=== PATIENT | male | born 1960 | race Caucasian/White ===

== ENCOUNTER 2016-11-23 18:41 | Observation (INO) | payer OTHER ==
[2016-11-23] MEDS ORDERED: NS 0.9% 1000 ML* 1,000 ML IV SCH ×2 (19:45→21:30)
[2016-11-23 19:58] LABS: Hematocrit 46 % (42-52); Hemoglobin 15.8 g/dl (14.0-18.0); Mean Corpuscular HGB Conc 35 g/dl (31-36); Mean Corpuscular Hemoglobin 31 pg (27-31); Mean Corpuscular Volume 91 fL (80-94); Mean Platelet Volume 7 um3 (7.4-10.4); Red Blood Count 5.04 10^6/ul (4.0-5.4); Red Cell Distribution Width 13 % (10.5-15); White Blood Count 9.1 10^3/ul (3.5-10.8)
[2016-11-23 20:14] LABS: Albumin 4.3 g/dL (3.2-5.2); BUN/Creatinine Ratio 12.7 (8-20); C Reactive Protein 2.68 mg/L (< 5.00); Calcium 9.8 mg/dL (8.6-10.3); EGFR Non-African American 101.1 (>60); Magnesium 1.8 mg/dL (1.9-2.7); Potassium 3.4 mmol/L (3.5-5.0); Total Bilirubin 0.5 mg/dL (0.2-1.0); Total Protein 7.3 g/dL (6.4-8.9)
[2016-11-23 20:17] LABS: Troponin I 0.01 ng/mL (<0.04)
--- NOTE | 2016-11-23 20:38 | RAD ---
INDICATION: Chest pain COMPARISON: None TECHNIQUE: An AP portable view obtained at 2000 hours is submitted. FINDINGS: Bones/Soft Tissues: There are no acute bony findings. Cardiomediastinal: The cardiomediastinal silhouette is normal. Lungs: There are no infiltrates. Pleura: There are no pleural effusions. Other: None IMPRESSION: NO ACTIVE DISEASE
[2016-11-23 20:43] LABS: TSH (Thyroid Stimulating Horm) 2.07 mcIU/mL (0.34-5.60)
[2016-11-23] MEDS ORDERED: Aspirin Low Dose CHEW TAB* 81 MG PO ONE (21:09)
[2016-11-23] MEDS ORDERED: Magnesium Sulfate 2 GM IV* 2 GM/50 ML BAG IVPB ONE (21:14)
[2016-11-23] MEDS ORDERED: Acetaminophen TAB* 325 MG PO PRN (21:15)
[2016-11-23] MEDS ORDERED: Ondansetron INJ* 2 MG/ML VIAL IV PRN (21:16)
[2016-11-23] MEDS ORDERED: CMCS: Melatonin (NF) 3 MG TAB PO PRN (21:16)
[2016-11-23] MEDS ORDERED: Albuterol 2.5 MG/3 ML NEB.SOL* (0.083%) INH PRN (21:16)
[2016-11-23] MEDS ORDERED: Nicotine Inhaler* 10 MG AMP INH PRN (21:16)
[2016-11-23] MEDS ORDERED: Morphine INJ* 2 MG/ML 1 ML SYRINGE IV PRN (21:16)
[2016-11-23] MEDS: Metoprolol Tartrate TAB* 25 MG PO SCH (23:10)
--- NOTE | 2016-11-24 01:20 | ED ---
arlet Guerrero Timothy, scribed for Jordan De Paz MD on 11/23/16 at 2056 . Dizziness - HPI Summary HPI Summary: Markel Gil is a 55 yo male presenting to [facility] with 7/10 sharp mid sternal CP at 1430 today, lasting a few seconds, and at 1530 diffuse tingling sensation with a feeling of lightheadedness and weakness that is in the process of resolving. Pt states he is experiencing chills and shakes as well. He states he experienced his Sx while walking to his car from a gas station. He denies SOB, nausea, radiation of pain, or diaphoresis. He notes he has been busy today and did not eat much this morning. His MHx includes HTN. - History Of Current Complaint Chief Complaint: EDDizziness Stated Complaint: LIGHT HEADED ,DIZZY Time Seen by Provider: 11/23/16 20:50 Hx Obtained From: Patient Onset/Duration: Still Present Timing: Constant Severity Initially: Moderate Severity Currently: Moderate Associated Signs And Symptoms: Positive: Chest Pain, Chills, Other: - shakes, weakness, lightheadedness - Allergies/Home Medications Allergies/Adverse Reactions: Allergies Allergy/AdvReac Type Severity Reaction Status Date / Time No Known Allergies Allergy Verified 11/23/16 18:44 PMH/Surg Hx/FS Hx/Imm Hx Cardiovascular History: Reports: Hx Hypertension Infectious Disease History: No Infectious Disease History: Denies: Traveled Outside the [place] in Last 30 Days - Family History Known Family History: Positive: Cardiac Disease - CABGx3 in father and brother - Social History Alcohol Use: Occasionally Substance Use Type: Reports: None Smoking Status (MU): Heavy Every Day Tobacco Smoker Review of Systems Positive: Chills, Other - shakes Eyes: Negative ENT: Negative Positive: Chest Pain Respiratory: Negative Gastrointestinal: Negative Genitourinary: Negative Musculoskeletal: Negative Skin: Negative Neurological: Other - lightheadedness Positive: Weakness, Paresthesia Psychological: Normal All Other Systems Reviewed And Are Negative: Yes Physical Exam Triage Information Reviewed: Yes Vital Signs On Initial Exam: Initial Vitals Temp Pulse Resp Pulse Ox 99.0 F 98 20 100 11/23/16 18:44 11/23/16 18:44 11/23/16 18:44 11/23/16 18:44 Vital Signs Reviewed: Yes Appearance: Positive: Well-Appearing, No Pain Distress, Well-Nourished Skin: Positive: Warm, Skin Color Reflects Adequate Perfusion, Dry Head/Face: Positive: Normal Head/Face Inspection Eyes: Positive: EOMI, RODRICK ENT: Positive: Normal ENT inspection Neck: Positive: Supple, Nontender Respiratory/Lung Sounds: Positive: Clear to Auscultation, Breath Sounds Present Cardiovascular: Positive: RRR Abdomen Description: Positive: Nontender, Soft Bowel Sounds: Positive: Present Musculoskeletal: Positive: Normal, Strength/ROM Intact Neurological: Positive: Sensory/Motor Intact, Alert, Oriented to Person Place, Time Psychiatric: Positive: Affect/Mood Appropriate - [place] Coma Scale Coma Scale Total: 15 Diagnostics - Vital Signs Vital Signs Temp Pulse Resp BP Pulse Ox 11/23/16 18:47 99 F 94 20 155/85 100 11/23/16 18:44 99.0 F 98 20 100 - Laboratory Lab Results: Lab Results 11/23/16 11/23/16 11/23/16 Range/Units 19:50 19:50 19:50 WBC 9.1 (3.5-10.8) 10^3/ul RBC 5.04 (4.0-5.4) 10^6/ul Hgb 15.8 (14.0-18.0) g/dl Hct 46 (42-52) % MCV 91 (80-94) fL MCH 31 (27-31) pg MCHC 35 (31-36) g/dl RDW 13 (10.5-15) % Plt Count 231 (150-450) 10^3/ul MPV 7 L (7.4-10.4) um3 Neut % (Auto) 68.5 (38-83) % Lymph % (Auto) 17.7 L (25-47) % [place] % (Auto) 9.4 H (1-9) % Eos % (Auto) 3.4 (0-6) % Baso % (Auto) 1.0 (0-2) % Absolute Neuts (auto) 6.3 (1.5-7.7) 10^3/ul Absolute Lymphs (auto) 1.6 (1.0-4.8) 10^3/ul Absolute Monos (auto) 0.9 H (0-0.8) 10^3/ul Absolute Eos (auto) 0.3 (0-0.6) 10^3/ul Absolute Basos (auto) 0.1 (0-0.2) 10^3/ul Absolute Nucleated RBC 0 10^3/ul Nucleated RBC % 0 INR (Anticoag Therapy) 0.93 (0.89-1.11) APTT 31.5 (26.0-36.3) seconds Sodium 134 (133-145) mmol/L Potassium 3.4 L (3.5-5.0) mmol/L Chloride 101 (101-111) mmol/L Carbon Dioxide 23 (22-32) mmol/L Anion Gap 10 (2-11) mmol/L BUN 10 (6-24) mg/dL Creatinine 0.79 (0.67-1.17) mg/dL Est GFR ( Amer) 130.0 (>60) Est GFR (Non-Af Amer) 101.1 (>60) BUN/Creatinine Ratio 12.7 (8-20) Glucose 91 (70-100) mg/dL Lactic Acid (0.5-2.0) mmol/L Calcium 9.8 (8.6-10.3) mg/dL Magnesium 1.8 L (1.9-2.7) mg/dL Total Bilirubin 0.50 (0.2-1.0) mg/dL AST 21 (13-39) U/L ALT 39 (7-52) U/L Alkaline Phosphatase 53 (34-104) U/L Total Creatine Kinase 72 (10-223) U/L CK-MB (CK-2) 1.6 (0.6-6.3) ng/mL Troponin I 0.01 (<0.04) ng/mL C-Reactive Protein 2.68 (< 5.00) mg/L B-Natriuretic Peptide ( - 100) pg/mL Total Protein 7.3 (6.4-8.9) g/dL Albumin 4.3 (3.2-5.2) g/dL Globulin 3.0 (2-4) g/dL Albumin/Globulin Ratio 1.4 (1-3) Lipase 18 (11.0-82.0) U/L TSH 2.07 (0.34-5.60) mcIU/mL 11/23/16 11/23/16 Range/Units 19:50 19:50 WBC (3.5-10.8) 10^3/ul RBC (4.0-5.4) 10^6/ul Hgb (14.0-18.0) g/dl Hct (42-52) % MCV (80-94) fL MCH (27-31) pg MCHC (31-36) g/dl RDW (10.5-15) % Plt Count (150-450) 10^3/ul MPV (7.4-10.4) um3 Neut % (Auto) (38-83) % Lymph % (Auto) (25-47) % [place] % (Auto) (1-9) % Eos % (Auto) (0-6) % Baso % (Auto) (0-2) % Absolute Neuts (auto) (1.5-7.7) 10^3/ul Absolute Lymphs (auto) (1.0-4.8) 10^3/ul Absolute Monos (auto) (0-0.8) 10^3/ul Absolute Eos (auto) (0-0.6) 10^3/ul Absolute Basos (auto) (0-0.2) 10^3/ul Absolute Nucleated RBC 10^3/ul Nucleated RBC % INR (Anticoag Therapy) (0.89-1.11) APTT (26.0-36.3) seconds Sodium (133-145) mmol/L Potassium (3.5-5.0) mmol/L Chloride (101-111) mmol/L Carbon Dioxide (22-32) mmol/L Anion Gap (2-11) mmol/L BUN (6-24) mg/dL Creatinine (0.67-1.17) mg/dL Est GFR ( Amer) (>60) Est GFR (Non-Af Amer) (>60) BUN/Creatinine Ratio (8-20) Glucose (70-100) mg/dL Lactic Acid 1.7 (0.5-2.0) mmol/L Calcium (8.6-10.3) mg/dL Magnesium (1.9-2.7) mg/dL Total Bilirubin (0.2-1.0) mg/dL AST (13-39) U/L ALT (7-52) U/L Alkaline Phosphatase (34-104) U/L Total Creatine Kinase (10-223) U/L CK-MB (CK-2) (0.6-6.3) ng/mL Troponin I (<0.04) ng/mL C-Reactive Protein (< 5.00) mg/L B-Natriuretic Peptide 41 ( - 100) pg/mL Total Protein (6.4-8.9) g/dL Albumin (3.2-5.2) g/dL Globulin (2-4) g/dL Albumin/Globulin Ratio (1-3) Lipase (11.0-82.0) U/L TSH (0.34-5.60) mcIU/mL Result Diagrams: 11/23/16 19:50 11/23/16 19:50 Lab Statement: Any lab studies that have been ordered have been reviewed, and results considered in the medical decision making process. - Radiology CXR Xray Interpretation: No Acute Changes - IMPRESSION: NO ACTIVE DISEASE Radiology Interpretation Completed By: Radiologist - EKG 1848 Cardiac Rate: NL - BPM EKG Interpretation: NSR @ 87 BPM, nml ST, no ectopy Dizzy Course/Dx - Course Assessment/Plan: Markel Gil is a 55 yo male presenting to [facility] with 2/10 CP lasting a few minutes at 1430, followed by dizziness at 1530 that has not resolved, also c/o chills and shakes. His medication list was reviewed this visit. His CXR suggests no active disease. Reviewed lab, imaging, and EKG results with Pt, as well as possible admission for observation and stress test. Pt is agreeable to be admitted to [facility]. After clinical examination and review of his lab and imaging studies, as well as discussion with Dr. Bruno, he will be admitted to [facility] for further observation and stress test. NO CRITICAL CARE TIME. ADMIT HOSPITALIST STABLE. - Diagnoses Provider Diagnoses: Chest pain, Lightheadedness - Provider Notifications Discussed Care Of Patient With: Sonido Bruno - Accepts Pt for admission Time Discussed With Above Provider: 21:14 Discharge - Discharge Plan Condition: Stable Disposition: ADMITTED TO [facility] documentation as recorded by the arlet gordillo Timothy accurately reflects the service I personally performed and the decisions made by me, Jordan De Paz MD.
--- NOTE | 2016-11-24 03:38 | HP ---
H&P (Free Text) History and Physical: PCP: none Date/Time of Evaluation: 11/23/2016 2100 CC: chest pain, light-headedness HPI: Mr Gil is a 55YO male HX PMedHx HTN OA Allergies No Known Allergies Allergy (Verified 11/23/16 18:44) PSurgHx R knee arthroscopy x2 R shoulder surgery x2 SocHx: 1PPD cigarettes, mild alcohol, denies recreational drugs; full code status FamHx: Father: CAD age 50, CABG; Brother: CAD age 40, CABG ROS: as above, otherwise reviewed and all were negative Constitutional: NAD, normally developed, obese white male vitals: Vital Signs Temp 36.7 C 11/24/16 00:13 Pulse 73 11/24/16 00:13 Resp 16 11/24/16 00:13 BP 117/71 11/24/16 00:13 Pulse Ox 95 11/24/16 00:13 Intake & Output 11/23/16 11/23/16 11/24/16 11:59 23:59 11:59 Intake Total 750 Balance 750 Weight 85.593 kg Intake: IV Fluids 750 HEENM: atraumatic; sclera/conjunctiva: non-icteric/clear; hearing: clinically intact; oropharynx: clear, mucosa moist Neck: soft tissue: non-tender; thyroid: normal Pulmonary: clear to auscultation bilaterally, good aeration, no accessory muscle use CV: RR/RR, normal S1S2, no carotid bruit, no jugular venous distention, 2+ B DP/ PT, no edema Abdominal: soft, non-distended, non-tender, no rebound/guarding/rigidity, normoactive bowel sounds, no hepatosplenomegaly or masses, no costovertebral angle tenderness Musculoskeletal: general: grossly intact; gait: stable Integumental: normal appearance and texture of exposed skin Psychiatric orientation: AA&O to PPS affect: calm mood: cooperative eye contact: good to fair content: reliable responses: timely insight: good to fair Testing: Lab Results 11/23/16 11/23/16 11/23/16 Range/Units 19:50 19:50 19:50 WBC 9.1 (3.5-10.8) 10^3/ul RBC 5.04 (4.0-5.4) 10^6/ul Hgb 15.8 (14.0-18.0) g/dl Hct 46 (42-52) % MCV 91 (80-94) fL MCH 31 (27-31) pg MCHC 35 (31-36) g/dl RDW 13 (10.5-15) % Plt Count 231 (150-450) 10^3/ul MPV 7 L (7.4-10.4) um3 Neut % (Auto) 68.5 (38-83) % Lymph % (Auto) 17.7 L (25-47) % [place] % (Auto) 9.4 H (1-9) % Eos % (Auto) 3.4 (0-6) % Baso % (Auto) 1.0 (0-2) % Absolute Neuts (auto) 6.3 (1.5-7.7) 10^3/ul Absolute Lymphs (auto) 1.6 (1.0-4.8) 10^3/ul Absolute Monos (auto) 0.9 H (0-0.8) 10^3/ul Absolute Eos (auto) 0.3 (0-0.6) 10^3/ul Absolute Basos (auto) 0.1 (0-0.2) 10^3/ul Absolute Nucleated RBC 0 10^3/ul Nucleated RBC % 0 INR (Anticoag Therapy) 0.93 (0.89-1.11) APTT 31.5 (26.0-36.3) seconds D-Dimer, Quantitative < 200 (Less Than 230) ng/mL Sodium 134 (133-145) mmol/L Potassium 3.4 L (3.5-5.0) mmol/L Chloride 101 (101-111) mmol/L Carbon Dioxide 23 (22-32) mmol/L Anion Gap 10 (2-11) mmol/L BUN 10 (6-24) mg/dL Creatinine 0.79 (0.67-1.17) mg/dL Est GFR ( Amer) 130.0 (>60) Est GFR (Non-Af Amer) 101.1 (>60) BUN/Creatinine Ratio 12.7 (8-20) Glucose 91 (70-100) mg/dL Lactic Acid (0.5-2.0) mmol/L Calcium 9.8 (8.6-10.3) mg/dL Magnesium 1.8 L (1.9-2.7) mg/dL Total Bilirubin 0.50 (0.2-1.0) mg/dL AST 21 (13-39) U/L ALT 39 (7-52) U/L Alkaline Phosphatase 53 (34-104) U/L Total Creatine Kinase 72 (10-223) U/L CK-MB (CK-2) 1.6 (0.6-6.3) ng/mL Troponin I 0.01 (<0.04) ng/mL C-Reactive Protein 2.68 (< 5.00) mg/L B-Natriuretic Peptide ( - 100) pg/mL Total Protein 7.3 (6.4-8.9) g/dL Albumin 4.3 (3.2-5.2) g/dL Globulin 3.0 (2-4) g/dL Albumin/Globulin Ratio 1.4 (1-3) Lipase 18 (11.0-82.0) U/L TSH 2.07 (0.34-5.60) mcIU/mL 11/23/16 11/23/16 Range/Units 19:50 19:50 WBC (3.5-10.8) 10^3/ul RBC (4.0-5.4) 10^6/ul Hgb (14.0-18.0) g/dl Hct (42-52) % MCV (80-94) fL MCH (27-31) pg MCHC (31-36) g/dl RDW (10.5-15) % Plt Count (150-450) 10^3/ul MPV (7.4-10.4) um3 Neut % (Auto) (38-83) % Lymph % (Auto) (25-47) % [place] % (Auto) (1-9) % Eos % (Auto) (0-6) % Baso % (Auto) (0-2) % Absolute Neuts (auto) (1.5-7.7) 10^3/ul Absolute Lymphs (auto) (1.0-4.8) 10^3/ul Absolute Monos (auto) (0-0.8) 10^3/ul Absolute Eos (auto) (0-0.6) 10^3/ul Absolute Basos (auto) (0-0.2) 10^3/ul Absolute Nucleated RBC 10^3/ul Nucleated RBC % INR (Anticoag Therapy) (0.89-1.11) APTT (26.0-36.3) seconds D-Dimer, Quantitative (Less Than 230) ng/mL Sodium (133-145) mmol/L Potassium (3.5-5.0) mmol/L Chloride (101-111) mmol/L Carbon Dioxide (22-32) mmol/L Anion Gap (2-11) mmol/L BUN (6-24) mg/dL Creatinine (0.67-1.17) mg/dL Est GFR ( Amer) (>60) Est GFR (Non-Af Amer) (>60) BUN/Creatinine Ratio (8-20) Glucose (70-100) mg/dL Lactic Acid 1.7 (0.5-2.0) mmol/L Calcium (8.6-10.3) mg/dL Magnesium (1.9-2.7) mg/dL Total Bilirubin (0.2-1.0) mg/dL AST (13-39) U/L ALT (7-52) U/L Alkaline Phosphatase (34-104) U/L Total Creatine Kinase (10-223) U/L CK-MB (CK-2) (0.6-6.3) ng/mL Troponin I (<0.04) ng/mL C-Reactive Protein (< 5.00) mg/L B-Natriuretic Peptide 41 ( - 100) pg/mL Total Protein (6.4-8.9) g/dL Albumin (3.2-5.2) g/dL Globulin (2-4) g/dL Albumin/Globulin Ratio (1-3) Lipase (11.0-82.0) U/L TSH (0.34-5.60) mcIU/mL ECG, personally reviewed: NSR rate 87, no ischemia CXR, personally reviewed: IMPRESSION: NO ACTIVE DISEASE Impression: 55M HX HTN, obesity presenting with atypical chest pain and strong cardiac family history DIAGNOSIS & PLAN Primary chest pain r/o ACS : telemetry : dobutamine stress echo in AM : trend troponin : supplemental oxygen : aspirin : metoprolol : supportive care Secondary HTN : review meds once reconciled OA : pain control Admission Rational: CDU observation for r/o ACS DVTp: heparin SQ Code Status: full
[2016-11-24] MEDS ORDERED: Heparin VIAL(*) 5000 UNITS/ML VIAL (FIVE THOUSAND) SUBCUT SCH (06:00)
[2016-11-24] MEDS ORDERED: Omeprazole CAP* 20 MG PO SCH (06:00)
[2016-11-24 07:00] LABS: BUN/Creatinine Ratio 12.7 (8-20); Calcium 9.2 mg/dL (8.6-10.3); EGFR Non-African American 101.1 (>60); Magnesium 2.2 mg/dL (1.9-2.7); Potassium 3.9 mmol/L (3.5-5.0)
[2016-11-24] MEDS ORDERED: Docusate CAP* 100 MG PO SCH (09:00)
[2016-11-24] MEDS ORDERED: Spiriva Inhaler DEVICE* 1 EACH DEVICE INH ONE (09:00)
[2016-11-24] MEDS ORDERED: Aspirin EC Low Dose* 81 MG TAB.EC PO SCH (09:00)
[2016-11-24] MEDS ORDERED: Tiotropium CAP.INH* CAP.INH/18 MCG INH SCH (09:00)
[2016-11-24] MEDS ORDERED: Mometasone/Formoter 200/5 MDI INH SCH (09:00)
[2016-11-24] MEDS: Metoprolol Tartrate TAB* 25 MG PO SCH (11:29)
[2016-11-24 11:56] LABS: Urine Bilirubin Negative (Negative); Urine Glucose Negative (Negative); Urine Nitrite Negative (Negative)
[2016-11-24 12:03] VITALS: BP 130/77
[2016-11-24] MEDS ORDERED: Perflutren Lipid Microsphere* 3 ML VIAL ONE (12:46)
--- NOTE | 2016-11-24 14:01 | DCNOTE ---
No further symptoms here in the hospital. Feels well. Says aleks were sick recently with viral illness. Had lunch. On exam, RRR, s1 and s2 present, no m/g/r, abd soft, NTND, BS+, lungs CTA B/L, no w/r/r Stress test negative. Plan to d/c with PCP f/u. Etiology of symptoms is unclear, possibly viral infection.
--- NOTE | 2016-11-25 11:44 | DS ---
DISCHARGE SUMMARY: DATE OF ADMISSION: 11/23/16 DATE OF DISCHARGE: 11/24/16 PRIMARY CARE PHYSICIAN: Unclear who the patient's PCP is. PRINCIPAL DISCHARGE DIAGNOSIS: Chest pain. DISCHARGE MEDICATION REGIMEN: 1. Amlodipine 10 mg by mouth daily. 2. Gabapentin 100 mg by mouth daily. 3. Omeprazole 20 mg by mouth daily. 4. Acetaminophen 650 mg by mouth every 4 hours as needed for pain. 5. Aspirin 81 mg by mouth daily. 6. Chlorhexidine 15 mL swish and spit daily. STUDIES DURING HOSPITALIZATION: Chest x-ray, impression: No active disease. Dobutamine stress echo , no evidence of inducible ischemia. No wall motion abnormalities. HISTORY OF PRESENT ILLNESS AND HOSPITAL SUMMARY: Please see the full history and physical by Dr. Fr randall Bruno for full details. Briefly, Mr. Gil is a 55-year- old male with past medical histor y of hypertension, who presented to the hospital with a very brief episode of chest pain that lasted less than 1 second, subsequently followed by subjective fever, chills, and some lightheadedness. T he patient has a strong family history of cardiac disease with concerns and came to the emergency de partment. Cardiac workup was largely negative including troponin, telemetry, and dobutamine stress echo. The patient had no recurrence of the symptoms while here. He did note that his grand kids we re out recently and have been sick, this could possibly be a viral illness. The patient will have n o change in medication at this time. He was instructed to follow up with his PCP as an outpatient. Total time spent on this discharge was 35 minutes. This is a summary of this hospitalization, gabi wilburn see the full medical record for further details. [id number]/[facility] #: [id number]
== END 2016-11-24 14:50 | disposition home or self-care (01) ==
LOC: ED 18:41 → MEDTELE 22:42
PROVIDERS: ADMIT Hospitalist; ATTEND Hospitalist
DX: R07.9 Chest pain, unspecified (principal); E66.9 Obesity, unspecified; M19.90 Unspecified osteoarthritis, unspecified site; Z82.49 Family history of ischemic heart disease and other diseases of the circulatory system; Z79.82 Long term (current) use of aspirin; Z79.899 Other long term (current) drug therapy; F17.210 Nicotine dependence, cigarettes, uncomplicated
CPT/HCPCS: 36415; 71010; 80048; 80053; 81003; 82550; 82553; 83605; 83690; 83735; 83880; 84443; 84484; 85025; 85379; 85610; 85730; 86140; 93005; 93350; 96361; 96365; 99285; 99406; A9270-GY; G0378